=== PATIENT | male | born 1960 | race Caucasian/White ===

== ENCOUNTER → 2019-06-01 11:51 | Outpatient (CLI) | payer BC, SELFPAY ==
--- NOTE | 2019-06-01 | DI.US.S_ITS ---
PROCEDURE: US ABD AORTA ANEURYSM SCREEN INDICATIONS: AAA SCREENING TECHNIQUE: Real time scanning was performed of the aorta and iliac arteries, with image documentation. COMPARISON: None. FINDINGS: Aorta: Proximal aortic diameter measures 2.7 cm. Mid-aorta measures 2.2 cm. Distal aortic diameter is 1.9 cm. Iliac arteries: Right common iliac artery measures 1.5 cm. Left common iliac artery measures 1.5 cm. Atherosclerotic changes of the common iliac arteries are present. IMPRESSION: 1. No evidence of abdominal aortic aneurysm. 2. 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 Dictated by: Jack Klein M.D. on 06/01/2019 at 12:43 Approved by: Jack Klein M.D. on 06/01/2019 at 12:50
== END ==
PROVIDERS: PCP Specialist; Visit Provider Specialist
DX: Z13.6 Encounter for screening for cardiovascular disorders (principal)
CPT/HCPCS: 76706